=== PATIENT | male | born 1995 | race Caucasian/White ===

== ENCOUNTER 2016-03-31 19:37 | Emergency (ER) | payer OTHER ==
[~2016-03-31] VITALS: Ht 188 cm; Wt 113.0 kg
[~2016-03-31 19:37] MED LIST: ALBUAER INH; AZIT500T26 PO; OMEP40CA PO
[2016-03-31 19:39] VITALS: TEMP 36.9; Ht 188 cm; Wt 113.0 kg
[2016-03-31] MEDS ORDERED: ACET-1256 PO (19:46)
[2016-03-31] MEDS ORDERED: ACETAMINOPHEN 500 MG TAB PO STA (20:10)
--- NOTE | 2016-03-31 20:49 | DIAGNOSTIC IMAGING REPORT ---
HEAD CT NONCONTRAST CT DOSE: 537.48 mGy.cm HISTORY: stuck head on wall; headache, dizziness, nausea TECHNIQUE: Multiaxial CT images of the head were performed without the use of intravenous contrast. Comparison: None. Findings: The paranasal sinuses and mastoid air cells are clear. The calvarium and skull base are intact. The ventricles and sulci are within normal limits. There is no mass, hematoma, midline shift, or acute infarct. Impression: No acute intracranial abnormality. Electronically signed by: Fab Hernández M.D. 03/31/2016 8:47 PM
[2016-03-31 21:10] VITALS: BP 133/78; PULSE 83; O2SAT 98
--- NOTE | 2016-04-02 12:49 | EMERGENCY ROOM VISIT NOTE ---
ED Visit Note First contact with patient: 19:55 Chief Complaint: Head and rib injuries. History of Present Illness: Mr. Manning is a 20-year-old white male who ambulates into the ED accompanied by his complaining of a possible head injury and rib pain. 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 Today he was working approximately 5 hours before he arrived in the emergency department and was squeezed between to cows. He reports he lost his balance and fell backwards striking his head on the ground. He reports at the time of the injury he did not have loss of consciousness. Since the injury he has been having a headache, intermittent dizziness, transient nausea and mild blurry vision. Currently patient is complaining of a throbbing headache over the right parietal area. He rates this discomfort 8/10. The pain is nonradiating. He has not identified any aggravating or alleviating factors related to the pain. He reports he has taken Tylenol without relief of his discomfort. As previously noted he reports he has been having intermittent dizziness predominantly with head movement, he had one episode of transient nausea after taking a shower approximately 2 hours ago but no vomiting and he reports he has noted some mild blurry vision but no overall decrease in vision. I did question about his rib pain but then he did not feel that this was important to evaluate. He does indicate it was on the right side again no additional information about his rib pain. He denies hearing changes, difficulty speaking, difficulty swallowing, neck/ back pain, chest pain, shortness of breath, abdominal pain, extremity weakness/ numbness/tingling. Review of Systems: As noted above in history of present illness. All body systems were reviewed and found to be negative as noted above. Past Medical History: Pneumonia. Current Medications: Toradol, tramadol. Allergies to Medications: Patient denies. Social History: Patient is currently employed; he feels safe in his home environment; he lives with his ; he admits to tobacco use and denies alcohol use. Physical Examination: Vital Signs: Date Time Temp Pulse Resp B/P Pulse Ox O2 Delivery O2 Flow Rate FiO2 03/31/16 21:10 83 18 133/78 98 03/31/16 19:41 18 03/31/16 19:39 36.9 94 18 142/89 98 Room Air GENERAL: 20-year-old male in mild distress due to pain, nontoxic-appearing, afebrile and hemodynamically stable. NEUROLOGICAL: Awake, alert and oriented to person, place and time. Answering questions appropriately and following commands. Normal gait. Good hand eye coordination. No focal motor sensory deficits. Romberg test is a stay but negative. Pronator drift test negative. Cranial nerves II through XII grossly intact. Good rapid alternating movements. Unable to spell [place] backwards. Able to draw the face o'clock. Normal heel pimentel test. SKIN: Warm, dry and pink. No soft tissue eruptions or trauma noted. HEENT: Atraumatic and normocephalic. Skull: No bony deformity, bony depressions or crepitus. There is mild swelling over the right temporal area. No raccoon's eyes or craig signs. No drainage from the ears or the nostril; no hemotympanum. Face: No bony tenderness, swelling or ecchymosis. PERRLA. EOMI without nystagmus. Funduscopic examination is unremarkable with no signs of increased intracranial pressure. Sclera white and conjunctiva pink. No malocclusion. Airway patent. No intraoral trauma. Speech normal. Trachea midline. No jugular venous distention. BACK: No tenderness over the bony cervical or thoracic spine. Full range of motion of the cervical spine. THORAX: Lungs sounds are clear to auscultation and equal bilaterally with symmetrical chest wall. No wheezing, rales or rhonchi. Mild tenderness over the right lateral ribs without bony crepitus, deformity, swelling, ecchymosis or subcutaneous air. EXTREMITIES: Moves all extremities well on command and with purpose. All distal neurovascular statuses are intact and equal bilaterally. 5/5 muscle strength in flexion, extension, abduction and abduction of the shoulders and hips, flexion and extension of the elbows and knees. ED Course: Patient is assessed as noted above. Patient was given 1 g of Tylenol by mouth for pain. Head CT: Was read by myself and the radiologist showing no acute intracranial abnormalities or skull fractures. Patient was offered rib x-rays and refused. Patient was educated about tonight's findings and instructed on his treatment plan; he verbalizes understanding and agreement with this plan. Clinical Impression: Concussion. Right parietal scalp contusion. Rib pain. Work related injury. Disposition: Patient discharged home in stable condition accompanied by his ; prior to departure he was reassessed and subjectively reported he was feeling the same. Plan: Patient was encouraged to alternate ibuprofen and acetaminophen as needed for pain. Patient was encouraged to use ice over his scalp contusion. Patient was encouraged to rest for the next 48 hours and no strenuous activities. Patient was encouraged to have someone wake him from sleep and test his orientation every 6 hours. Patient was encouraged not to use alcohol for the next 48 hours. Patient was encouraged to follow-up at the local concussion clinic. was educated on signs of worsening head injury. Patient was encouraged return the ED for any signs of worsening head injury or any new/concerning symptoms.
== END 2016-03-31 21:10 | disposition home or self-care (01) ==
LOC: C.EDB 19:38 → C.EDD 21:10
DX: S06.0X0A Concussion without loss of consciousness, initial encounter (principal); S00.03XA Contusion of scalp, initial encounter; W18.09XA Striking against other object with subsequent fall, initial encounter; Z72.0 Tobacco use

== ENCOUNTER 2017-06-21 20:27 | Emergency (ER) | payer OTHER ==
[~2017-06-21] VITALS: Ht 188 cm; Wt 110.4 kg
[~2017-06-21 20:27] MED LIST changes: +ACET-1256 PO; -ALBUAER INH; -AZIT500T26 PO; -OMEP40CA PO
[2017-06-21 20:30] VITALS: TEMP 36.9; Ht 188 cm; Wt 110.4 kg
[2017-06-21] MEDS ORDERED: IBUPROFEN 600 MG TAB PO STA (20:46)
--- NOTE | 2017-06-21 21:19 | DIAGNOSTIC IMAGING REPORT ---
HEAD WITHOUT CONTRAST (CT) CLINICAL HISTORY: 21 years-old Male presenting with GALEANO, head injury yesterday. TECHNIQUE: Multidetector CT imaging of the head was performed without the use of intravenous contrast. IV contrast: None. A dose lowering technique was used consistent with the principles of ALARA (as low as reasonably achievable). COMPARISON: 03/31/2016 CT DOSE (mGy.cm): The estimated cumulative dose is 1116.[address] cervical spine. FINDINGS: Licensed Bondsman topogram: Unremarkable. Ventricles and sulci normal in size. Brain parenchyma normal in appearance with preserved gimenez-white differentiation. No mass effect or midline shift. No hemorrhage or acute territorial infarct. No extra-axial fluid collection. Paranasal sinuses and mastoid air cells clear. Calvarium intact. IMPRESSION: 1. No acute intracranial abnormality. Electronically signed by: James Cortés M.D. 06/21/2017 9:18 PM Dictated Date/Time: 06/21/2017 9:16 PM
--- NOTE | 2017-06-21 21:21 | DIAGNOSTIC IMAGING REPORT ---
CERVICAL SPINE W/O CLINICAL HISTORY: 21 years-old Male presenting with Neck pain, burning/numbness into LUE to 3rd finger. TECHNIQUE: Multidetector CT of the cervical spine was performed without the use of intravenous contrast. IV contrast: None. A dose lowering technique was used consistent with the principles of ALARA (as low as reasonably achievable). COMPARISON: Plain radiographs from 01/28/2016. CT DOSE (mGy.cm): The estimated cumulative dose is 1116.40 mGy.cm. FINDINGS: Account Review Specialist topogram: Unremarkable. Straightening of normal cervical lordosis likely positional. Vertebral bodies maintain normal height and alignment. Intervertebral disc spaces preserved. No degenerative change. No osseous spinal canal or neural foraminal narrowing. No acute fracture or subluxation. Skull base intact. Paraspinal soft tissues within normal limits allowing for noncontrast technique. Lung apices clear. IMPRESSION: No acute osseous injury of the cervical spine. Electronically signed by: James Cortés M.D. 06/21/2017 9:19 PM Dictated Date/Time: 06/21/2017 9:18 PM
[2017-06-21] MEDS ORDERED: METH4PAK PO (21:44)
[2017-06-21 21:54] VITALS: BP 153/91; PULSE 87; O2SAT 97
--- NOTE | 2017-06-21 22:36 | EMERGENCY ROOM VISIT NOTE ---
History First contact with patient: 20:37 Chief Complaint: HEAD INJURY (MINOR) Stated Complaint: NECK PAIN, NUMB BODY, NAUSEA History of Present Illness The patient is a 21 year old male who presents to the Emergency Room with complaints of headache, neck pain and pain radiating into the left scapula and down the left arm to his third finger. The patient also reports a burning sensation into the upper arm as well. 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 He had no loss of consciousness. The patient rates his discomfort a 7 out of 10. Review of Systems 10 system review was performed and was negative except for pertinent positives and negatives as indicated in history of present illness Past Medical/Surgical History Medical Problems: (1) Concussion Without Loss Of Consciousness, Initial Encounter (2) No known problems (3) Pneumonia, Organism Nos (4) Tobacco Use Disorder Surgical Problems: (1) No history of previous surgery Family History Cancer Heart disease Hypertension Social History Smoking Status: Current Every Day Smoker Alcohol Use: none Drug Use: none Marital Status: in relationship Occupation Status: employed Current/Historical Medications Scheduled Methylprednisolone (Medrol Dosepak), 0 PO DAILY Physical Exam Vital Signs Date Time Temp Pulse Resp B/P (MAP) Pulse Ox O2 Delivery O2 Flow Rate FiO2 06/21/17 21:54 87 16 153/91 97 06/21/17 20:30 36.9 98 18 178/80 96 Room Air Physical Exam CONSTITUTIONAL: Healthy and well nourished. Alert and oriented X 3 with positive affect. GCS 15. Patient does not appear in any acute distress on my exam. HEENT: Normocephalic, atraumatic. Pupils equal, round and reactive. No forehead edema, erythema, ecchymosis, abrasions or lacerations. No subconjunctival hemorrhage, hemotympanum or epistaxis. NECK: Examination shows generalized tenderness to palpation of the cervical musculature. Right lateral gaze worsens discomfort into his left shoulder. RESPIRATORY: Clear to auscultation bilaterally with no wheezing, crackles, rhonchi or stridor. CARDIOVASCULAR: Regular rate and rhythm with no murmurs, rubs or gallops. MUSCULOSKELETAL: Range of motion of the left shoulder does not worsen the patient's discomfort. Equal handgrip bilaterally. Distal pulses of the left upper extremity are intact. Patient has mild tenderness to palpation as well through the left medial scapular border. INTEGUMENTARY: No rash or other significant dermatologic conditions noted. NEUROLOGIC: No focal neurologic deficits noted. Upper extremities and left deltoid sensation are intact. Negative pronator drift. No ataxia with ambulation. Medical Decision & Procedures ER Provider Diagnostic Interpretation: Noncontrast CT of the head and cervical spine are negative for fracture or intracranial bleed. Radiologist reports are as follows: HEAD WITHOUT CONTRAST (CT) CLINICAL HISTORY: 21 years-old Male presenting with GALEANO, head injury yesterday. TECHNIQUE: Multidetector CT imaging of the head was performed without the use of intravenous contrast. IV contrast: None. A dose lowering technique was used consistent with the principles of ALARA (as low as reasonably achievable). COMPARISON: 03/31/2016 CT DOSE (mGy.cm): The estimated cumulative dose is 1116.[address] cervical spine. FINDINGS: Reel Winder topogram: Unremarkable. Ventricles and sulci normal in size. Brain parenchyma normal in appearance with preserved gimenez-white differentiation. No mass effect or midline shift. No hemorrhage or acute territorial infarct. No extra-axial fluid collection. Paranasal sinuses and mastoid air cells clear. Calvarium intact. IMPRESSION: 1. No acute intracranial abnormality. CERVICAL SPINE W/O CLINICAL HISTORY: 21 years-old Male presenting with Neck pain, burning/numbness into LUE to 3rd finger. TECHNIQUE: Multidetector CT of the cervical spine was performed without the use of intravenous contrast. IV contrast: None. A dose lowering technique was used consistent with the principles of ALARA (as low as reasonably achievable). COMPARISON: Plain radiographs from 01/28/2016. CT DOSE (mGy.cm): The estimated cumulative dose is 1116.40 mGy.cm. FINDINGS: Reel Winder topogram: Unremarkable. Straightening of normal cervical lordosis likely positional. Vertebral bodies maintain normal height and alignment. Intervertebral disc spaces preserved. No degenerative change. No osseous spinal canal or neural foraminal narrowing. No acute fracture or subluxation. Skull base intact. Paraspinal soft tissues within normal limits allowing for noncontrast technique. Lung apices clear. IMPRESSION: No acute osseous injury of the cervical spine. Medications Administered Medications (Trade) Dose Ordered Sig/Wilfredo Route Start Time Stop Time Status Last Admin Dose Admin Ibuprofen (Motrin Tab) 600 mg NOW STAT PO 06/21/17 20:46 06/21/17 20:50 DC 06/21/17 21:00 600 MG Prednisone (PredniSONE TAB) 50 mg ONE STAT PO 06/21/17 20:46 06/21/17 20:50 DC 06/21/17 21:00 50 MG ED Course Patient history and physical exam were performed. Nurse's notes were reviewed. Vital signs were reviewed, showing an elevated blood pressure 178/80. The patient's stated that he was wanting something for pain. The patient was administered ibuprofen 600 mg and prednisone [address] of the head and cervical spine were normal. The patient will be provided a prescription for a Medrol Dosepak. He was encouraged alternate ibuprofen and Tylenol as needed for pain. The patient was instructed to follow-up with his PCP for recheck within the next 24-48 hours as he may require an MRI if his symptoms persist. The patient voiced understanding of all discharge instructions, was happy with plan of care, and rated his overall discomfort a 5 out of 10 at the conclusion of my exam. Blood pressure recheck showed a blood pressure 153/91. The patient was instructed to discuss his elevated blood pressures with his PCP. Medical Decision Medication Reconcilliation Current Medication List: was personally reviewed by ok Blood Pressure Screening Patient's blood pressure: Elevated blood pressure Blood pressure disposition: Referred to PCP Impression Primary Impression: Concussion Additional Impressions: Radiculitis of left cervical region Elevated blood pressure reading Departure Information Prescriptions Methylprednisolone (MEDROL DOSEPAK) 4 Mg Matthew 0 PO DAILY, #1 PKT Prov: José Luis Dean PA 06/21/17 Referrals Kelby García M.D. (MEDICAL) (PCP) Patient Instructions My [facility] Problem Qualifiers Primary Impression: Concussion Encounter type: initial encounter Loss of consciousness presence/duration: without LOC Qualified Codes: S06.0X0A - Concussion without loss of consciousness, initial encounter
== END 2017-06-21 21:55 | disposition home or self-care (01) ==
LOC: C.EDB 20:27 → C.EDD 21:55
DX: S06.0X0A Concussion without loss of consciousness, initial encounter (principal); W20.8XXA Other cause of strike by thrown, projected or falling object, initial encounter; M54.12 Radiculopathy, cervical region; R40.2412 Glasgow coma scale score 13-15, at arrival to emergency department; R03.0 Elevated blood-pressure reading, without diagnosis of hypertension; F17.200 Nicotine dependence, unspecified, uncomplicated; Z82.49 Family history of ischemic heart disease and other diseases of the circulatory system